=== PATIENT | female | born 1970 | race Caucasian/White ===

== ENCOUNTER 2022-07-15 09:47 | Observation (INO) | payer MEDICARE, SELFPAY ==
[2022-07-15] MEDS ORDERED: Fentanyl 100 MCG/2 ML VIAL ONE (10:38)
[2022-07-15 13:13] LABS: #Eosinphils 0.1 thou/uL (0.0-0.7); #Lymphocytes 2.3 thou/uL (1.20-3.40); #Monocytes 0.5 thou/uL (0.11-0.59); %Basophils 0.1 % (0.0-1.0); %Eosinophils 1.8 % (0.0-10.0); %Lymphocytes 32.8 % (21.0-51.0); %Monocytes 7.3 % (0.0-10.0); %Neutrophils 57.9 % (42.0-75.0); Hemoglobin 13.4 g/dL (12.0-16.0); Mean Corpuscular HGB CONC 33.7 g/dL (32.0-36.0); Mean Corpuscular Hemoglobin 29.3 pg (27.0-31.0); Mean Corpuscular Volume 86.9 fl (78.0-98.0); Mean Platelet Volume 8.2 fL (7.4-10.4); Platelet Count 225 10x3/uL (130-400); RBC Distribution Width 11.8 % (11.5-14.5); Red Blood Cell (RBC) Count 4.58 mill/uL (4.20-5.40); White Blood Cell (WBC) Count 6.9 10x3/uL (4.8-10.8)
[2022-07-15 13:41] LABS: ALT (SGPT) 14 U/L (8-55); AST (SGOT) 19 U/L (5-34); Albumin 3.9 g/dL (3.5-5.0); Alkaline Phosphatase 73 U/L (40-110); Anion Gap 13 mmol/L (10-20); BUN (Urea Nitrogen) 14 mg/dL (7.0-18.7); Bilirubin, Total 0.3 mg/dL (0.2-1.2); Calc. Creatinine Clearance 0 mL/min (70-130); Calcium 9.5 mg/dL (7.8-10.44); Carbon Dioxide 24 mmol/L (22-29); Chloride 105 mmol/L (98-107); Estimated GFR 99; Glucose 100 mg/dL (70-105); Potassium 4.2 mmol/L (3.5-5.1); Protein, Total 6.9 g/dL (6.0-8.3); Sodium 138 mmol/L (136-145)
[2022-07-15] MEDS ORDERED: Acetaminophen 650 MG Suppository PR PRN (14:51)
[2022-07-15] MEDS ORDERED: Acetaminophen 325 MG TAB PO PRN (14:51)
[2022-07-15] MEDS ORDERED: Ondansetron PF 4 MG/2 ML Vial IVP PRN (14:51)
[2022-07-15] MEDS ORDERED: Ondansetron ODT 4 MG TAB PO PRN (14:51)
[2022-07-15] MEDS ORDERED: Morphine 2 MG/ML VIAL SLOW IVP PRN (15:51)
[2022-07-15 17:00] VITALS: BMI 29.2
[2022-07-15] MEDS: Sodium Chloride 0.9% 1,000 ML IV SCH (17:14)
[2022-07-15] MEDS: Pantoprazole 40 MG VIAL IVP SCH (17:27)
[2022-07-15] MEDS: Morphine 2 MG/ML VIAL SLOW IVP PRN (22:10)
[2022-07-16] MEDS: Sodium Chloride 0.9% 1,000 ML IV SCH (01:51)
[2022-07-16] MEDS: Morphine 2 MG/ML VIAL SLOW IVP PRN ×2 (02:38→08:42)
[2022-07-16 05:00] LABS: #Eosinphils 0.1 thou/uL (0.0-0.7); #Lymphocytes 2.8 thou/uL (1.20-3.40); #Monocytes 0.3 thou/uL (0.11-0.59); #Neutrophils 2.5 thou/uL (1.40-6.50); %Basophils 0.3 % (0.0-1.0); %Eosinophils 2.4 % (0.0-10.0); %Lymphocytes 48.6 % (21.0-51.0); %Monocytes 5.9 % (0.0-10.0); %Neutrophils 42.8 % (42.0-75.0); Hemoglobin 12.5 g/dL (12.0-16.0); Mean Corpuscular HGB CONC 33.5 g/dL (32.0-36.0); Mean Corpuscular Hemoglobin 29.3 pg (27.0-31.0); Mean Corpuscular Volume 87.5 fl (78.0-98.0); Mean Platelet Volume 8.3 fL (7.4-10.4); Platelet Count 193 10x3/uL (130-400); RBC Distribution Width 11.7 % (11.5-14.5); Red Blood Cell (RBC) Count 4.25 mill/uL (4.20-5.40); White Blood Cell (WBC) Count 5.8 10x3/uL (4.8-10.8)
[2022-07-16 05:17] LABS: Anion Gap 10 mmol/L (10-20); BUN (Urea Nitrogen) 9 mg/dL (7.0-18.7); Calc. Creatinine Clearance 142 mL/min (70-130); Calcium 8.5 mg/dL (7.8-10.44); Carbon Dioxide 22 mmol/L (22-29); Chloride 111 mmol/L (98-107); Estimated GFR 106; Glucose 97 mg/dL (70-105); Potassium 3.8 mmol/L (3.5-5.1); Sodium 139 mmol/L (136-145)
[2022-07-16 05:29] LABS: Magnesium 2.1 mg/dL (1.6-2.6)
[2022-07-16] MEDS: Ketorolac Tromethamine 30 MG/ML VIAL IVP SCH ×2 (06:32→11:13)
[2022-07-16] MEDS: Pantoprazole 40 MG VIAL IVP SCH (08:42)
[2022-07-16] MEDS ORDERED: Iopamidol 370 76% 100 ML VIAL ONE (09:42)
[2022-07-16 11:59] VITALS: BP 130/70; TEMP 98.1
[2022-07-16] MEDS ORDERED: MD-Gastroview 120 ML BOT ONE (13:31)
== END 2022-07-16 16:00 | disposition home or self-care (01) ==
LOC: ERS 09:47 → 2SW 16:41
PROVIDERS: ADMIT Hospitalist; ATTEND Hospitalist
DX: K59.00 Constipation, unspecified (principal); I82.502 Chronic embolism and thrombosis of unspecified deep veins of left lower extremity; F17.290 Nicotine dependence, other tobacco product, uncomplicated; R00.1 Bradycardia, unspecified; Z20.822 Contact with and (suspected) exposure to COVID-19
CPT/HCPCS: 71045; 71275; 74018; 74250; 80048; 80053; 83605; 83735; 84100; 84443; 84484; 85025 ×2; 93005; 93970; 96372 ×2; 96374; 96375; 96376 ×2; 99285; G0378 ×2; J2272 ×2; U0003; U0005; 36415; C9113; J1650; J1885; J3010; J7050; Q0162; Q9963; Q9967